=== PATIENT | female | born 1990 | race Caucasian/White ===

== ENCOUNTER 2018-02-03 08:14 | Emergency (ER) | payer MEDICAID ==
[2018-02-03 08:14] VITALS: BMI 33.9
[2018-02-03 08:23] VITALS: TEMP 98.1; O2SAT 98
[2018-02-03] MEDS ORDERED: Sodium Chloride 0.9% 1,000 ML IV ONE (08:45)
--- NOTE | 2018-02-03 08:47 | C.PDOC ---
History Of Present Illness 27 y/o female presents to the ER complaining of epigastric pain which began last night. Patient states that she also had episodes of nausea and vomiting. Patient's LMP was on 11/24/17. Patient currently denies having nausea, vomiting , diarrhea, hematuria/dysuria, vaginal bleeding/discharge. Time Seen by Provider: 02/03/18 08:17 Chief Complaint (Nursing): Abdominal Pain History Per: Patient History/Exam Limitations: no limitations Onset/Duration Of Symptoms: Days Current Symptoms Are (Timing): Gone Severity: Moderate Past Medical History Reviewed: Historical Data, Nursing Documentation, Vital Signs Vital Signs: Last Vital Signs Temp 98.1 F 02/03/18 08:19 Pulse 74 02/03/18 09:40 Resp 18 02/03/18 09:40 BP 101/63 02/03/18 09:40 Pulse Ox 98 02/03/18 18:40 - Medical History PMH: No Chronic Diseases Other Surgeries: Hx of surgeries - [facility] Procedures APPLICATION OF SPLINT (11/26/14) LOW CERVICAL (01/24/14) Family History: States: No Known Family Hx - Social History Hx Tobacco Use: No Hx Alcohol Use: No Hx Substance Use: No - Immunization History Hx Tetanus Toxoid Vaccination: No Hx Influenza Vaccination: No Hx Pneumococcal Vaccination: No Review Of Systems Except As Marked, All Systems Reviewed And Found Negative. Constitutional: Negative for: Fever Cardiovascular: Negative for: Chest Pain, Palpitations Respiratory: Negative for: Cough, Shortness of Breath Gastrointestinal: Negative for: Nausea, Vomiting, Abdominal Pain, Diarrhea Genitourinary: Negative for: Dysuria, Hematuria, Vaginal Discharge, Vaginal Bleeding Skin: Negative for: Rash Physical Exam - Physical Exam Appears: Well, Non-toxic, No Acute Distress Skin: Normal Color, Warm Eye(s): bilateral: Normal Inspection Oral Mucosa: Moist Neck: Supple Cardiovascular: Rhythm Regular Respiratory: Normal Breath Sounds, No Rales, No Rhonchi, No Wheezing Gastrointestinal/Abdominal: Soft, Tenderness (mild epigastric tenderness), No Guarding, No Rebound, Other ((-) Hays's, (-) McBurney's ) Neurological/Psych: Oriented x3 ED Course And Treatment - Laboratory Results Result Diagrams: 02/03/18 09:04 02/03/18 09:04 O2 Sat by Pulse Oximetry: 98 (RA) Pulse Ox Interpretation: Normal Progress Note: Blood work, UA, UPreg ordered and reviewed. Patient given IV NS bolus, IV pepcid. Reevaluation Time: 09:30 Reassessment Condition: Improved (On reassessment, patient is resting comfortably and states she feels better. Blood work, UA, UPreg WNL. On exam, abdomen is soft and nontender. Rx for zofran given. Patient instructed to follow up with PMD/clinic in 1-2 days. She understands she should return to ED if symptoms worsen.) Disposition Counseled Patient/Family Regarding: Studies Performed, Diagnosis, Need For Followup, Rx Given - Disposition Referrals: [facility] [Outside] Disposition: HOME/ ROUTINE Disposition Time: 09:30 Condition: STABLE Additional Instructions: FOLLOW UP WITH YOUR DOCTOR/CLINIC IN 1-2 DAYS USE MEDICATION FOR NAUSEA NEEDED DRINK PLENTY OF FLUIDS RETURN TO ER IF SYMPTOMS WORSEN Prescriptions: Ondansetron [Zofran Odt] 4 mg PO Q8 PRN #12 odt PRN Reason: Nausea/Vomiting Instructions: Nausea and Vomiting, Adult (DC) Forms: [employer] [facility] (Irish), Work Excuse Print Language: ROMANSH - Clinical Impression Clinical Impression: Nausea, Vomiting - Scribe Statement The provider has reviewed the documentation as recorded by the Sylvain Marrero Provider Attestation: All medical record entries made by the Bradibamanda were at my direction and personally dictated by me. I have reviewed the chart and agree that the record accurately reflects my personal performance of the history, physical exam, medical decision making, and the department course for this patient. I have also personally directed, reviewed, and agree with the discharge instructions and disposition.
[2018-02-03 09:07] LABS: HCG,QUALITATIVE URINE NEGATIVE (NEGATIVE)
[2018-02-03 09:07] LABS: BASO # 0.1 K/uL (0.0-0.2); BASO % 0.9 % (0.0-2.0); EOS % 0.8 % (0.0-4.0); LYMPH # 1.9 K/uL (1.0-4.3); LYMPH % 34.5 % (20.0-40.0); MEAN CORPUSCULAR HEMOGLOBIN 32.4 pg (27.0-31.0); MEAN CORPUSCULAR HGB CONC 34.1 g/dL (33.0-37.0); MEAN PLATELET VOLUME 8.1 fL (7.2-11.7); MONO # 0.5 K/uL (0.0-0.8); MONO % 9.8 % (0.0-10.0); NRBC % 0.1 % (0.0-2.0); RBC 4.44 Mil/uL (3.80-5.20); RED CELL DISTRIBUTION WIDTH 13.5 % (11.5-14.5); WHITE BLOOD COUNT 5.5 K/uL (4.8-10.8)
[2018-02-03 09:09] LABS: HEMOGLOBIN 14.4 g/dL (11.0-16.0); MEAN CELL VOLUME 94.8 fL (81.0-99.0)
[2018-02-03] MEDS ORDERED: Sodium Chloride 0.9% 1,000 ML ONE (09:09)
[2018-02-03 09:18] LABS: ALB/GLOB RATIO 1.2 (1.0-2.1); ALT/SGPT 25 U/L (9-52); AST/SGOT 24 U/L (14-36); BLOOD UREA NITROGEN 9 mg/dL (7-17); CALCIUM 8.6 mg/dl (8.6-10.4); GFR AFRICAN-AMERICAN > 60; GFR NON-AFRICAN AMERICAN > 60; LIPASE 112 U/L (23-300)
[2018-02-03 09:19] LABS: SQUAMOUS EPITHIAL 3 /hpf (0-5); URINE BACTERIA RARE (<OCC); URINE BILIRUBIN NEGATIVE (NEGATIVE); URINE BLOOD NEGATIVE (NEGATIVE); URINE CLARITY Hazy (Clear); URINE COLOR Yellow (YELLOW); URINE GLUCOSE (UA) NORMAL (Normal); URINE LEUKOCYTE ESTERASE TRACE Leu/uL (Negative); URINE PROTEIN NEGATIVE (NEGATIVE); URINE UROBILINOGEN NORMAL mg/dL (0.2-1.0)
[2018-02-03 09:41] VITALS: BP 101/63; PULSE 74; RESP 18
== END 2018-02-03 09:41 | disposition home or self-care (01) ==
LOC: C.ER 08:14
DX: R11.2 Nausea with vomiting, unspecified (principal)
CPT/HCPCS: 80053; 81001; 83690; 84703; 85025; 96374; 99284; J7040

== ENCOUNTER 2018-07-31 09:00 | Emergency (ER) | payer MEDICAID ==
[2018-07-31 09:00] VITALS: BMI 33.9
[2018-07-31 09:14] VITALS: O2SAT 100
--- NOTE | 2018-07-31 13:08 | C.PDOC ---
History Of Present Illness 28 y/o female presents to the ED for repeat beta-HCG and ultrasound. Patient was seen here 3 days ago for abdominal pain and vomiting, found to have + test, and ultrasound was inconclusive. LMP was 06/24/18. Patient returns today as instructed for repeat testing. Currently she denies having any pain or other physical complaints. Denies vaginal bleeding. Time Seen by Provider: 07/31/18 09:38 Chief Complaint (Nursing): Medical Clearance History Per: Patient History/Exam Limitations: no limitations Onset/Duration Of Symptoms: Days Current Symptoms Are (Timing): Gone Past Medical History Reviewed: Historical Data, Nursing Documentation, Vital Signs Vital Signs: Last Vital Signs Temp 98.4 F 07/31/18 13:35 Pulse 72 07/31/18 13:35 Resp 20 07/31/18 13:35 BP 106/71 07/31/18 13:35 Pulse Ox 100 07/31/18 14:06 - Medical History PMH: No Chronic Diseases Surgical History: (x3) - [facility] Procedures APPLICATION OF SPLINT (11/26/14) LOW CERVICAL (01/24/14) Family History: States: Unknown Family Hx - Social History Hx Tobacco Use: No Hx Alcohol Use: No Hx Substance Use: Yes - Immunization History Hx Tetanus Toxoid Vaccination: No Hx Influenza Vaccination: No Hx Pneumococcal Vaccination: No Review Of Systems Except As Marked, All Systems Reviewed And Found Negative. Constitutional: Negative for: Fever Gastrointestinal: Negative for: Nausea, Vomiting, Abdominal Pain Genitourinary: Negative for: Dysuria, Hematuria, Vaginal Discharge, Vaginal Bleeding Physical Exam - Physical Exam Appears: Non-toxic, No Acute Distress Skin: Normal Color, Warm, Dry Head: Atraumatic, Normacephalic Eye(s): bilateral: Normal Inspection Neck: Normal ROM Chest: Symmetrical, No Deformity Respiratory: Other (No respiratory distress) Gastrointestinal/Abdominal: Bowel Sounds (active), Soft, No Tenderness, No Distention Extremity: Bilateral: Atraumatic, Normal Color And Temperature Neurological/Psych: Oriented x3, Normal Speech Gait: Steady ED Course And Treatment O2 Sat by Pulse Oximetry: 100 (RA) Pulse Ox Interpretation: Normal - CT Scan/US US Other Rad Studies (CT/US): Read By Radiologist, Radiology Report Reviewed CT/US Interpretation: FINDINGS: UTERUS: Single intrauterine gestation. Gestational sac diameter measures 0.77 cm too small to characterize gestational age. Yolk sac and pole are not visualized on the current examination. Radha-gestational hemorrhage: None. Uterus measures 9.1 x 5.3 x 6.4 cm. No mass. CERVIX: Long and closed. No cervical abnormality seen. RIGHT OVARY: Measures 3.3 x 3.3 x 3.6 cm. No mass. Normal flow. There is a 1.8 x 1.5 x 1.7 cm corpus luteum. LEFT OVARY: Measures 2.7 x 1.8 x 2.8 cm. No mass. Normal flow. FREE FLUID: None. OTHER FINDINGS: None. IMPRESSION: Single intrauterine gestational sac too small to characterize gestational age. pole and yolk sac are not visualized. Clinical follow-up and follow-up ultrasound is recommended to assess viability. Medical Decision Making Medical Decision Making: Impression: 28 y/o female, hx of inconclusive ultrasound, r/o ectopic Plan: --Beta HCG quant --OB/transvaginal US Disposition Counseled Patient/Family Regarding: Studies Performed, Diagnosis, Need For Followup - Disposition Disposition: HOME/ ROUTINE Disposition Time: 14:07 Condition: STABLE Additional Instructions: Follow up with your [facility]ULLER Forms: [facility] (Burkinan), General Discharge Instructions - POA Present On Arrival: None - Clinical Impression Clinical Impression: Early stage of - Scribe Statement The provider has reviewed the documentation as recorded by the Scribe (Zenaida Dave) Provider Attestation: All medical record entries made by the Scribe were at my direction and personally dictated by me. I have reviewed the chart and agree that the record accurately reflects my personal performance of the history, physical exam, medical decision making, and the department course for this patient. I have also personally directed, reviewed, and agree with the discharge instructions and disposition.
[2018-07-31 13:36] VITALS: BP 106/71; PULSE 72; RESP 20; TEMP 98.4
--- NOTE | 2018-07-31 13:52 | US ---
Date of service: 07/31/2018 PROCEDURE: OB Pelvic Ultrasound HISTORY: repeat US to r/o ectopic COMPARISON: None available. FINDINGS: UTERUS: Single intrauterine gestation. Gestational sac diameter measures 0.77 cm too small to characterize gestational age. Yolk sac and pole are not visualized on the current examination. Radha-gestational hemorrhage: None. Uterus measures 9.1 x 5.3 x 6.4 cm. No mass CERVIX: Long and closed. No cervical abnormality seen. RIGHT OVARY: Measures 3.3 x 3.3 x 3.6 cm. No mass. Normal flow. There is a 1.8 x 1.5 x 1.7 cm corpus luteum LEFT OVARY: Measures 2.7 x 1.8 x 2.8 cm. No mass. Normal flow. FREE FLUID: None. OTHER FINDINGS: None. IMPRESSION: Single intrauterine gestational sac too small to characterize gestational age. pole and yolk sac are not visualized. Clinical follow-up and follow-up ultrasound is recommended to assess viability.
== END 2018-07-31 14:17 | disposition home or self-care (01) ==
LOC: C.ER 09:00
DX: O26.891 Other specified pregnancy related conditions, first trimester (principal); Z3A.00 Weeks of gestation of pregnancy not specified

== ENCOUNTER 2018-08-02 18:36 | Emergency (ER) | payer MEDICAID ==
[2018-08-02 18:36] VITALS: BMI 33.9
[2018-08-02 18:48] VITALS: TEMP 98.6; O2SAT 98
[2018-08-02] MEDS ORDERED: Sodium Chloride 0.9% 1,000 ML IV ONE (19:33)
--- NOTE | 2018-08-02 19:44 | C.PDOC ---
History Of Present Illness 28 year old female () with unknown gestational stage presents to the ED complaining of persistent abdominal pain. Patient as been twice in the ED. She reports subjective fever and nausea. She denies vomiting or any other complain ts. Time Seen by Provider: 08/02/18 19:28 Chief Complaint (Nursing): Abdominal Pain History Per: Patient History/Exam Limitations: no limitations Onset/Duration Of Symptoms: Days Associated Symptoms: Fever, Nausea. denies: Vomiting Past Medical History Reviewed: Historical Data, Nursing Documentation, Vital Signs Vital Signs: Last Vital Signs Temp 98.6 F 08/02/18 18:43 Pulse 81 08/02/18 18:43 Resp 18 08/02/18 18:43 BP 106/67 08/02/18 18:43 Pulse Ox 98 08/02/18 18:43 - Medical History PMH: No Chronic Diseases Surgical History: (x3) - [facility] Procedures APPLICATION OF SPLINT (11/26/14) LOW CERVICAL (01/24/14) Family History: States: No Known Family Hx - Social History Hx Tobacco Use: No Hx Alcohol Use: No Hx Substance Use: No - Immunization History Hx Tetanus Toxoid Vaccination: No Hx Influenza Vaccination: No Hx Pneumococcal Vaccination: No Review Of Systems Except As Marked, All Systems Reviewed And Found Negative. Constitutional: Positive for: Fever (subjective) Gastrointestinal: Positive for: Nausea. Negative for: Vomiting Physical Exam - Physical Exam Appears: Non-toxic Skin: Warm, Dry Head: Normacephalic Eye(s): bilateral: Normal Inspection Nose: Normal Oral Mucosa: Moist Neck: Normal ROM Chest: Symmetrical Cardiovascular: Rhythm Regular Respiratory: Normal Breath Sounds, No Rales, No Rhonchi, No Wheezing Gastrointestinal/Abdominal: Tenderness (abaxial tenderness ), No Guarding, No Re bound Extremity: Normal ROM Neurological/Psych: Oriented x3, Normal Speech Gait: Steady ED Course And Treatment - Laboratory Results Result Diagrams: 08/02/18 19:51 08/02/18 19:51 O2 Sat by Pulse Oximetry: 98 (RA) Pulse Ox Interpretation: Normal Medical Decision Making Medical Decision Making: suspect cyst based on previous 2 us. r/o threatend ab vs micarriage. Orders: - Labwork - Bloodwork - US Transvaginal - Tylenol 650mg PO - IV fluids - UA 2130 On reassessment, patient reports pain resolved. Abdomen is soft. no ttp. no rlq ttp advise outpt fu. beta increasing appropirately. advise outpt fu. Reports: US TRANSVAGINAL CLINICAL HISTORY: Right sided pain and . TECHNIQUE: Realtime sonographic images were obtained in multiple projections. COMMENTS: A single intrauterine is identified with gestational sac measuring 1.23 cm consistent with 5 weeks 3 days gestation. No pole. heart motion was not identified. Yolk sac is identified measuring 0.23 cm. The uterus is anteverted measuring 11.3 x 5.7 x 5.8 cm. The cervix measures 3.4 cm. The right ovary measures 3.5 x 3 x 3.4 cm. The left ovary measures 2.6 x 1.7 x 2 cm. Right ovarian corpus luteal cyst measuring 2.1 x 2.3 x 2 cm. Both ovari es are free of masses. IMPRESSION: 1. Single, intrauterine gestation, 5 weeks 3 days based on todays gestational sac measurement. 2. No pole or heart motion. 3. Right ovarian corpus luteal cyst. 4. Consider short-term follow-up study in 7 days if clinically warranted. Disposition - Disposition Referrals: [facility] [Outside] [facility] at [facility] [Outside] Candice Oconnor MD [Staff Provider] - Disposition: HOME/ ROUTINE Disposition Time: 21:00 Condition: STABLE Additional Instructions: return to er with worsening symptoms or concerns follow up with obgyn. Instructions: Ovarian Cysts, Threatened Miscarriage Forms: [facility] (Setswana) - Clinical Impression Clinical Impression: Ovarian cyst, Threatened miscarriage, Abdominal pain - Scribe Statement The provider has reviewed the documentation as recorded by the Scribamanda Sparrow All medical record entries made by the Scribe were at my direction and personally dictated by me. I have reviewed the chart and agree that the record accurately reflects my personal performance of the history, physical exam, medical decision making, and the department course for this patient. I have also personally directed, reviewed, and agree with the discharge instructions and disposition.
[2018-08-02] MEDS ORDERED: Sodium Chloride 0.9% 1,000 ML ONE (19:48)
[2018-08-02 20:00] LABS: BASO % 0.5 % (0.0-2.0); EOS # 0.1 K/uL (0.0-0.7); EOS % 0.8 % (0.0-4.0); HEMOGLOBIN 13.9 g/dL (11.0-16.0); LYMPH # 2.4 K/uL (1.0-4.3); LYMPH % 29.6 % (20.0-40.0); MEAN CORPUSCULAR HEMOGLOBIN 33.8 pg (27.0-31.0); MEAN CORPUSCULAR HGB CONC 35.6 g/dL (33.0-37.0); MEAN PLATELET VOLUME 8.1 fL (7.2-11.7); MONO # 0.8 K/uL (0.0-0.8); MONO % 9.2 % (0.0-10.0); NEUT # 4.9 K/uL (1.8-7.0); NEUT % 59.9 % (50.0-75.0); NRBC % 0.1 % (0.0-2.0); RBC 4.11 Mil/uL (3.80-5.20); RED CELL DISTRIBUTION WIDTH 12.9 % (11.5-14.5); WHITE BLOOD COUNT 8.2 K/uL (4.8-10.8)
[2018-08-02 20:11] LABS: INR 1.2; PROTHROMBIN TIME 13.4 SECONDS (9.7-12.2)
[2018-08-02 20:45] LABS: ALB/GLOB RATIO 1.2 (1.0-2.1); ALBUMIN 4.2 g/dL (3.5-5.0); ALT/SGPT 35 U/L (9-52); AST/SGOT 27 U/L (14-36); BLOOD UREA NITROGEN 10 mg/dL (7-17); GFR NON-AFRICAN AMERICAN > 60
[2018-08-02 21:02] LABS: HCG,QUALITATIVE URINE POSITIVE (NEGATIVE)
[2018-08-02 21:08] LABS: SQUAMOUS EPITHIAL 3 /hpf (0-5); URINE AMORPHOUS SEDIMENT MODERATE /ul (<OCC); URINE BACTERIA OCC (<OCC); URINE BILIRUBIN NEGATIVE (NEGATIVE); URINE BLOOD NEGATIVE (NEGATIVE); URINE CLARITY Hazy (Clear); URINE COLOR Yellow (YELLOW); URINE GLUCOSE (UA) NORMAL (Normal); URINE LEUKOCYTE ESTERASE NEG Leu/uL (Negative); URINE PROTEIN NEGATIVE (NEGATIVE); URINE UROBILINOGEN NORMAL mg/dL (0.2-1.0)
[2018-08-02 21:43] VITALS: BP 114/67; PULSE 68; RESP 16
--- NOTE | 2018-08-03 09:41 | US ---
Date of service: 08/02/2018 PROCEDURE: First trimester ultrasound HISTORY: right sided pain and COMPARISON: 07/28/2018 and 07/31/2018. TECHNIQUE: Standard protocol for this study/examination. FINDINGS: LMP: 06/24/2018 Prior examinations from the current : 07/28/2018 and 07/31/2018 TECHNIQUE: Real-time 2D imaging, duplex and color Doppler. FINDINGS: No pole identified. Gestational age 5 weeks 3 days based on gestational sac measurement 1.23 cm Gestational age derived from LMP: 5 weeks 4 days ANA based on LMP: 03/31/2019 ANA based on biometry: 04/01/2019 Gestational concordance documented Yolk sac identified Cervix: No Cervical abnormalities: Negative examination for cervical dilatation or effacement. Closed cervix measuring 3.35 cm Subchorionic hemorrhage: None UTERUS: 5.7 x 11.3 cm. ADNEXA: Right: 3 x 3.5 x 3.4 cm. Corpus luteum cyst 2.1 x 2 x 2.3 cm. Normal Doppler arterial waveform documented. Left: 1.7 x 2 x 2.6 cm. Normal Doppler arterial waveform documented Fluid in the cul-de-sac: Trace fluid in the cul-de-sac. IMPRESSION: Well-formed gestational sac identified. Confirmation of yolk sac. No pole identified on the current study. Concordant results (preliminary interpretation) provided by [facility]. Procedure Completed: 20:11. Preliminary Report: Dictated and Authenticated: 21:26. Final Interpretation: 09:38. August 03, 2018.
== END 2018-08-02 21:58 | disposition home or self-care (01) ==
LOC: C.ER 18:36
DX: O20.0 Threatened abortion (principal); O34.81 Maternal care for other abnormalities of pelvic organs, first trimester; N83.11 Corpus luteum cyst of right ovary; R10.9 Unspecified abdominal pain; Z3A.01 Less than 8 weeks gestation of pregnancy
CPT/HCPCS: 76817; 80053; 81001; 84702; 84703; 85025; 85610; 85730; 86850; 86900; 96360; 99284; J7030

== ENCOUNTER 2019-01-02 10:02 | Outpatient (CLI) | payer MEDICAID | END 2019-01-02 10:03 | disposition home or self-care (01) | LOC: C.MRIC 10:02 ==

== ENCOUNTER 2019-03-21 07:05 | Inpatient (IN) | payer MEDICAID ==
[2019-03-21 07:46] VITALS: BMI 37.1
[2019-03-21] MEDS: Lactated Ringer's 1,000 ML IV SCH ×2 (08:00→09:00)
[2019-03-21] MEDS ORDERED: Sodium Citrate/Citric Acid 15 ml Sol PO ONE (08:54)
[2019-03-21] MEDS ORDERED: cefOXitin IV 2 gm in Dextrose 2 GM/50 ML BAG IVPB ONE ×2 (08:54→09:17)
[2019-03-21 08:59] LABS: BASO % 0.5 % (0.0-2.0); EOS % 0.5 % (0.0-4.0); HEMOGLOBIN 13.7 g/dL (11.0-16.0); LYMPH # 1.5 K/uL (1.0-4.3); LYMPH % 20.7 % (20.0-40.0); MEAN CORPUSCULAR HEMOGLOBIN 33.7 pg (27.0-31.0); MEAN CORPUSCULAR HGB CONC 34.4 g/dL (33.0-37.0); MEAN PLATELET VOLUME 9.9 fL (7.2-11.7); MONO # 0.6 K/uL (0.0-0.8); MONO % 8.8 % (0.0-10.0); NEUT % 69.5 % (50.0-75.0); RBC 4.07 Mil/uL (3.80-5.20); RED CELL DISTRIBUTION WIDTH 13.2 % (11.5-14.5); WHITE BLOOD COUNT 7.2 K/uL (4.8-10.8)
[2019-03-21] MEDS ORDERED: cefOXitin IV 2 gm in Dextrose 2 GM/50 ML BAG IVPB SCH (09:00)
[2019-03-21 09:04] LABS: MEAN CELL VOLUME 97.8 fL (81.0-99.0); SQUAMOUS EPITHIAL 12 /hpf (0-5); URINE BACTERIA OCC (<OCC); URINE BILIRUBIN NEGATIVE (NEGATIVE); URINE BLOOD NEGATIVE (NEGATIVE); URINE CLARITY Hazy (Clear); URINE COLOR Amber (YELLOW); URINE GLUCOSE (UA) NORMAL (Normal); URINE LEUKOCYTE ESTERASE 2+ Leu/uL (Negative); URINE PROTEIN NEGATIVE (NEGATIVE); URINE UROBILINOGEN NORMAL mg/dL (0.2-1.0)
[2019-03-21] MEDS ORDERED: Sodium Citrate/Citric Acid 15 ml Sol ONE (09:17)
[2019-03-21] MEDS ORDERED: Oxytocin 20 units in LR 2,000 ML IV ONE (09:17)
[2019-03-21 09:23] LABS: BARBITURATES, UR NEGATIVE (NEGATIVE); BENZODIAZEPINES, UR NEGATIVE (NEGATIVE); OPIATES, UR NEGATIVE (NEGATIVE); PHENCYCLIDINE, UR NEGATIVE (NEGATIVE)
[2019-03-21 09:29] LABS: ALB/GLOB RATIO 1.1 (1.0-2.1); ALBUMIN 3.7 g/dL (3.5-5.0); ALT/SGPT 19 U/L (9-52); AST/SGOT 34 U/L (14-36); BLOOD UREA NITROGEN 7 mg/dL (7-17); CALCIUM 9.3 mg/dl (8.6-10.4); GFR NON-AFRICAN AMERICAN > 60
[2019-03-21] MEDS ORDERED: Morphine 1 mg/ml preservative-free Inj(Duramorph) ONE (10:28)
[2019-03-21] MEDS ORDERED: Oxytocin 10 Units/ml Inj ONE (10:28)
[2019-03-21] MEDS ORDERED: Ketamine 50 mg/ml Inj (10 ml) ONE (10:52)
[2019-03-21] MEDS ORDERED: Oxytocin 30 UNIT in NS 500 ml 500 ML IV ONE (11:50)
--- NOTE | 2019-03-21 15:39 | OBDS ---
DELIVERY PERSONNEL Delivery Doctor: Kwame Huddleston MD Scrub Nurse: Alexandra Mckinley Finish Mixer: Gaston Kelly RN Anesthesiologist: João Alvarado MD MATERNAL INFORMATION Delivery Anesthesia: Spinal Medications in Delivery: pitocin Estimated Blood Loss (ml): 800 Placenta Cultured: No Maternal Complications: None Provider Comments: baby deliverd in brinda.end clean 9/9 b/l sapingectomy done no com cord gas semnd placente to pathology LABOR SUMMARY EDC: 03/31/2019 00:00 No. Babies in Womb: 1 Attempted: No Labor Anesthesia: None LABOR INFORMATION Reason for Induction: Not Applicable Other Ripening Agents: n/a Oxytocin: N/A Group B Beta Strep: Negative (Annotations: 02/28/2019) Steroids Given: None Reason Steroids Not Administered: Not Applicable MEMBRANES Membranes Rupture Method: Artificial Rupture of Membranes: 03/21/2019 10:57 Length of Rupture (hrs): 0.00 Amniotic Fluid Color: Clear Amniotic Fluid Amount: Moderate Amniotic Fluid Odor: Normal STAGES OF LABOR Stage 3 hrs: 0 Stage 3 min: 1 VAGINAL DELIVERY Episiotomy: None Laceration Extension: N/A Laceration Type: None Sharps Count Correct: Yes CSECTION DELIVERY Primary Indication: Repeat Elective Secondary Indication: N/A CSection Urgency: Elective CSection Incidence: Repeat Labor: No Labor Elective: Elective CSection Incision: Lower Uterine Transverse BABY A INFORMATION Delivery Date/Time: 03/21/2019 10:57 Method of Delivery: Born in Route : No : N/A Forceps: N/A Vacuum Extraction: N/A Shoulder Dystocia : No SHOULDER DYSTOCIA BABY A Delivery Date/Time: 03/21/2019 10:57 PRESENTATION/POSITION BABY A Presentation: Cephalic Cephalic Presentation: Vertex Vertex Position: Left Occipital Anterior Breech Presentation: N/A PLACENTA INFORMATION BABY A Placenta Delivery Time : 03/21/2019 10:58 Placenta Method of Delivery: Manual Removal Placenta Status: Delivered SCORES BABY A Heart Rate 1 min: >100 bpm Resp Effort 1 min: Good Cry Reflex Irritability 1 min: Cough or Sneeze or Pulls Away Muscle Tone 1 min: Active Motion Color 1 min: Body [place], Extremities Blue SCORE 1 MIN: 9 Heart Rate 5 min: >100 bpm Resp Effort 5 min: Good Cry Reflex Irritability 5 min: Cough or Sneeze or Pulls Away Muscle Tone 5 min: Active Motion Color 5 min: Body [place], Extremities Blue SCORE 5 MIN: 9 INFORMATION BABY A Gestational Age at Delivery: 38.4 Gestational Status: Term Infant Outcome : Liveborn Condition : Stable Infant Sex: Male WEIGHT/LENGTH BABY A Infant Birthweight (gms): 3295 Infant Weight (lb): 7 Infant Weight (oz): 4 Infant Length Inches: 19.50 Length cms: 49.5 CORD INFORMATION BABY A No. Cord Vessels: 3 Nuchal Cord : N/A Cord pH Baby Arterial: 7.47 Cord pH Baby Venous: 7.29 Infant Suction: Mouth; Nose ASSESSMENT BABY A Infant Complications: None Physical Findings at Delivery: Within Normal Limits Infant Respirations: Appears Normal Merchandising Lead/ALS Called : Yes Infant Care By: dr. diehl/ charlette rn Transferred To: [facility]
[2019-03-21] MEDS: Simethicone 80 mg Chewtab PO SCH (22:01)
--- NOTE | 2019-03-22 05:55 | OP ---
PROCEDURE DATE: 03/21/2019 PREOPERATIVE DIAGNOSIS: A 28-year-old 4, para 3 at 38 weeks and 4 days with decreased movement. POSTOPERATIVE DIAGNOSIS: A 28-year-old 4, para 3 at 38 weeks and 4 days with decreased movement. PROCEDURE PERFORMED: Repeat section, bilateral salpingectomy. SURGEON: Kwame Huddleston MD REAM CUTTER: Dr. Cortes. ANESTHESIA: Spinal. ANESTHESIOLOGIST: Dr. Evans. COMPLICATIONS: None. DESCRIPTION OF PROCEDURE: After informed consent was obtained, the patient was brought to the operating room, placed on the table where spinal anesthesia was given. When anesthesia was found to be sufficient, she was prepped and draped in normal sterile fashion. A 2 cm above the pubic bone, a skin incision was made with a knife, the subcutaneous tissue was cut with the Bovie. The fascia was from the site of the umbilicus and the rectus muscle was . Peritoneum was incised and we went into the abdominal cavity. Bladder blade was placed. Bladder flap was created. Lower uterine segment incision was made with a knife. It was extended using Bovie and curved Corado scissors. Baby delivered in KODAK position. After that, the cord was clamped and cut, baby was handed to the awaiting vehicle controls engineer, placenta delivered manually and sent off for pathology. The uterus was exteriorized and cleared of all clots and debris. The uterine incision was closed using #1 Vicryl in running interlocking fashion. Second layer was closed with the same stitch. Bilateral salpingectomy was performed using LigaSure. The patient had a consent signed. The cul-de-sac was cleared off all clots and debris. Uterus was returned to the abdominal cavity. Gutters were cleared of all the clots and debris. After that, the peritoneum was closed using 2-0 Vicryl in a running interlocking fashion. The muscle was closed using 2-0 Vicryl in a running interlocking fashion. Fascia was closed in a running interlocking fashion. Subcutaneous tissue was closed with 0-Vicryl in interrupted fashion. Skin was closed using 3-0 Monocryl. The patient tolerated the procedure well. Lap, sponge, and instrument counts were correct x2. Kwame Huddleston MD [facility] # [id number]
[2019-03-22 08:17] LABS: HEMOGLOBIN 12.2 g/dL (11.0-16.0); MEAN CELL VOLUME 97.2 fL (81.0-99.0); MEAN CORPUSCULAR HEMOGLOBIN 34.2 pg (27.0-31.0); MEAN CORPUSCULAR HGB CONC 35.1 g/dL (33.0-37.0); MEAN PLATELET VOLUME 9.6 fL (7.2-11.7); RBC 3.56 Mil/uL (3.80-5.20); RED CELL DISTRIBUTION WIDTH 13.3 % (11.5-14.5); WHITE BLOOD COUNT 9.4 K/uL (4.8-10.8)
[2019-03-22] MEDS: Simethicone 80 mg Chewtab PO SCH ×4 (09:13→22:20)
[2019-03-22] MEDS: Prenatal Multivit/Folic Acid/Iron Tab PO SCH (09:13)
[2019-03-22] MEDS ORDERED: Bisacodyl 5mg EC Tab PO ONE (11:00)
[2019-03-22] MEDS: Oxycodone/Acetaminophen 5/325 mg Tab PO PRN ×2 (13:03→19:03)
[2019-03-22] MEDS ORDERED: Magnesium Citrate Oral SOL (300 ml) PO ONE ×2 (20:02→22:30)
--- NOTE | 2019-03-22 22:45 | OBPPN ---
Datetime: 03/22/2019 12:24 PP Pain Prov: Within normal limits PP Nausea Prov: Denies PP Flatus Prov: No PP BM Prov: No PP Breasts Prov: Not Done PP Heart Prov: Normal PP Lungs Prov: Normal PP Abdomen/Uterus Prov: Normal PP Lochia Prov: Normal PP Vulva/Perineum Prov: Normal PP CVA Tenderness Prov: Normal PP Extremities Prov: Normal PP C/S Incision Prov: Normal PP Progress Prov: Normal PP Impression Prov: Normal progression PP Plan Prov: Continue present management PP Progress Note Prov: POD # 1 S/P Repeat C/S VSS, Afebrile PP H_H 12.2/34.6 Stable Encouraged to increase po water intake and activity Advance care IP PP Procedures: None Vital Signs Provider PP: Reviewed Vital Signs Provider Details PP: Dressing clean and dry (Annotations: Data stored by CPN on behalf o f user)
[2019-03-23] MEDS: Simethicone 80 mg Chewtab PO SCH ×4 (10:57→22:04)
[2019-03-23] MEDS: Prenatal Multivit/Folic Acid/Iron Tab PO SCH (11:18)
[2019-03-23] MEDS: Oxycodone/Acetaminophen 5/325 mg Tab PO PRN (13:15)
--- NOTE | 2019-03-23 15:56 | OBPPN ---
Datetime: 03/23/2019 15:43 PP Pain Prov: Within normal limits PP Nausea Prov: Denies PP Flatus Prov: Yes PP BM Prov: Yes PP Breasts Prov: Normal PP Heart Prov: Normal PP Lungs Prov: Normal PP Abdomen/Uterus Prov: Normal PP Lochia Prov: Normal PP Vulva/Perineum Prov: Not Done PP CVA Tenderness Prov: Normal PP Extremities Prov: Normal PP C/S Incision Prov: Normal PP Progress Prov: Normal PP Comments Phys Exam Prov: Abdomen: Obese. Soft. Non distended. (+) ABS. Fundus firm, mobile, mild and appopriately tender, 1 FB above umbilicus. Mild lochia rubra Incision with radha - clean, dry a nd intact. Extremities: no calf tenderness All other systems reviewed and are negative PP Impression Prov: Normal progression PP Plan Prov: Continue present management PP Progress Note Prov: Patient seen and evaluated at 1250 hours: received in room 459, sitting in be d - about to eat lunch. Denies nausea, vomiting. dizziness, lightheadedness; ambulating only in room. Voiding spontaneously. Reports abdominal pain, pain scale 8/10. , supplementing with fo rmula P.E.: as above. Awake, alert, oriented to time, person and place. Pleasant and cooperative - POD#1 H/H 12.2/34.6 Assessment: POD#2, 28 y.o. P4, S/P C/S #4 with permanent sterilization procedure. Afebrile, vital signs stable. Returning GI and functions. H/H stable. Patient is clinically stable Plan: 1) Pain management 2) Encourage ambulation outside room 3) Continue present post-op care 4) Anticipate discharge home 03/24/19. IP PP Procedures: None Vital Signs Provider PP: Reviewed; Within Normal Limits
[2019-03-24] MEDS: Simethicone 80 mg Chewtab PO SCH (09:12)
[2019-03-24] MEDS: Prenatal Multivit/Folic Acid/Iron Tab PO SCH (09:12)
[2019-03-24 10:44] VITALS: BP 105/75; PULSE 88; TEMP 98.4; O2SAT 98
--- NOTE | 2019-03-24 11:29 | OBPPN ---
Datetime: 03/24/2019 11:25 PP Pain Prov: Within normal limits PP Nausea Prov: Denies PP Flatus Prov: Yes PP BM Prov: Yes PP Breasts Prov: Normal PP Heart Prov: Normal PP Lungs Prov: Normal PP Abdomen/Uterus Prov: Normal PP Lochia Prov: Normal PP Vulva/Perineum Prov: Normal PP CVA Tenderness Prov: Normal PP Extremities Prov: Normal PP C/S Incision Prov: Normal PP Progress Prov: Normal PP Impression Prov: Normal progression PP Plan Prov: Discharge PP Progress Note Prov: s: c/o inadequate pain relief with motrin, only taking this. tolerating reg d iet. no other c/o i: pod3 cd doing well p: f/u 9-14 13 days for incision check in office rx pnv, oxycodone, motrin, tylenol for pain continue pnv. wound hygiene and care d/w pt. IP PP Procedures: None Vital Signs Provider PP: Reviewed
--- NOTE | 2019-03-24 11:31 | OBDCSUM ---
Datetime: 03/24/2019 08:19 Discharged to, Provider: Home Follow up at, Provider: jadyn Disch Instr Activity: Normal activity Disch Instr Diet: Regular Discharge Instructions, Provider: Routine instructions given Discharge Diagnosis, Provider: Term Delivered Discharge Time: 03/24/2019 11:30 Follow up in weeks, Provider: 2 wks for incision and 6 weeks Disch Referrals: None Disch Activity Restrictions: No exercising; No lifting; No driving; No sexual activity; Nothing in v agina - [place], tampons, douche Discharge Comment, Provider: s: c/o inadequate pain relief with motrin, only taking this. tolerating reg diet. no other c/o i: pod3 cd doing well p: f/u 9-14 13 days for incision check in office rx pnv, oxycodone, motrin, tylenol for pain continue pnv. wound hygiene and care d/w pt. Contraception after Delivery: Tubal Ligation
[2019-03-24] MEDS: Oxycodone/Acetaminophen 5/325 mg Tab PO PRN (11:39)
[2019-03-24] MEDS ORDERED: oxyCODONE 5 mg Immediate Release Tab PO PRN (12:00)
[2019-03-24 19:02] VITALS: RESP 19
== END 2019-03-24 14:45 | disposition home or self-care (01) | DRG 371 ==
LOC: C.EROB 07:05 → C.4D 07:47 → C.4M 14:40
PROVIDERS: ADMIT Obstetrics & Gynecology; ATTEND Obstetrics & Gynecology
PROC: 10D00Z1 Extraction of Products of Conception, Low, Open Approach (ICD-10-PCS; principal; 2019-03-21)
PROC: 0UB70ZZ Excision of Bilateral Fallopian Tubes, Open Approach (ICD-10-PCS; 2019-03-21)
DX: O34.211 Maternal care for low transverse scar from previous cesarean delivery (principal); O36.8130 Decreased fetal movements, third trimester, not applicable or unspecified; Z30.2 Encounter for sterilization; Z37.0 Single live birth; Z3A.38 38 weeks gestation of pregnancy